=== PATIENT | male | born 1950 | race Caucasian/White ===

== ENCOUNTER 2020-12-07 14:17 | Inpatient (IN) ==
[2020-12-07 15:01] LABS: Basophils % 0.2 %; Hematocrit 37.6 % (37.5-50.1); Hemoglobin 12.3 g/dL (12.9-16.9); Lymphocytes # 1.1 K/mcL (0.6-4.6); Lymphocytes % 23.4 %; Mean Corpuscular HGB Conc 32.7 g/dL (31.6-35.5); Mean Corpuscular Hemoglobin 28.3 pg (28.0-33.3); Mean Corpuscular Volume 86.4 fL (83.0-100.0); Mean Platelet Volume 9.7 fL (9.4-12.4); Monocytes # 0.3 K/mcL (0.0-1.3); Monocytes % 5.5 %; Neutrophils # 3.4 K/mcL (1.6-8.9); Platelet Count 233 K/mcL (140-400); Red Blood Count 4.35 M/mcL (4.19-5.50); Red Cell Distribution Width 13.2 % (11.5-14.5); Segmented Neutrophils % 69.9 %; White Blood Count 4.9 K/mcL (4.3-11.1)
[2020-12-07 15:26] LABS: Troponin I 0.08 ng/mL (< 0.04)
[2020-12-07 15:32] LABS: BUN/Creatinine Ratio 19 (6-26); Blood Urea Nitrogen 23 mg/dL (8-23); Calcium 8.2 mg/dL (8.6-10.3); Carbon Dioxide 21 mEq/L (23-29); Chloride 97 mEq/L (98-107); Glucose 96 mg/dL (70-105); Osmolality,Calculated 274 (280-300); Sodium 130 mEq/L (136-145); eGFR For African Americans > 60 (> 60); eGFR For Non-African Americans > 60 (> 60)
[2020-12-07 15:43] LABS: Influenza A PCR Negative (Negative); Influenza B PCR Negative (Negative); Resp. Syncytial Virus PCR Negative (Negative)
[2020-12-07 15:56] LABS: SARS-CoV-2 by PCR (In House) Positive (Negative)
[2020-12-07] MEDS ORDERED: Aspirin 325 MG TABLET PO ONE (16:34)
[2020-12-07] MEDS ORDERED: Acetaminophen 325 MG TABLET PO PRN (17:16)
[2020-12-07 17:23] LABS: Alanine Aminotransferase 19 Units/L (7-52); Albumin 3.9 g/dL (3.5-5.7); Albumin/Globulin Ratio 1.1 (1.1-2.2); Alkaline Phosphatase 51 Units/L (34-104); Aspartate Amino Transferase 31 Units/L (13-39); Bilirubin,Direct 0.2 mg/dL (0.0-0.2); Bilirubin,Indirect 0.4 mg/dL (0.0-1.0); Bilirubin,Total 0.6 mg/dL (0.3-1.0); C-Reactive Protein 103 mg/L (Less than 10); Globulin 3.7 g/dL (2.4-3.5); Lactate Dehydrogenase 247 Units/L (140-271); Total Protein 7.6 g/dL (6.4-8.9)
[2020-12-07 17:41] LABS: Ferritin 971 ng/mL (20-250)
[2020-12-07] MEDS ORDERED: Ondansetron 4 MG/2 ML VIAL IVP PRN (17:43)
[2020-12-07] MEDS ORDERED: Naloxone 0.4 MG/ML INJ IVP PRN (17:43)
[2020-12-07] MEDS ORDERED: Dextrose Gel 15 GM/37.5 ML TUBE PO PRN ×2 (17:55)
[2020-12-07] MEDS ORDERED: D5% in Water 1,000 ML IVC PRN (17:55)
[2020-12-07] MEDS ORDERED: *HR* Dextrose 50 % in Water (Syg) 50 ML SYRINGE IVP PRN (17:55)
[2020-12-07] MEDS ORDERED: Isovue-370 500 ML BOTTLE IVP ONE (18:25)
[2020-12-07] MEDS ORDERED: Remdesivir 200 MG in 0.9 % Sodium Chloride 100 ML IVPB ONE (19:00)
[2020-12-07] MEDS ORDERED: Melatonin 3 MG TABLET PO ONE (20:55)
[2020-12-07] MEDS: Insulin LISPRO 300 UNITS/3 ML VIAL SUBQ SCH (20:56)
[2020-12-07] MEDS: Ipratropium 1 PUFF INHALER IH SCH ×2 (21:08→23:56)
[2020-12-08 03:27] LABS: Alanine Aminotransferase 16 Units/L (7-52); Albumin 3.7 g/dL (3.5-5.7); Albumin/Globulin Ratio 1.1 (1.1-2.2); Alkaline Phosphatase 53 Units/L (34-104); Aspartate Amino Transferase 25 Units/L (13-39); BUN/Creatinine Ratio 28 (6-26); Bilirubin,Total 0.5 mg/dL (0.3-1.0); Blood Urea Nitrogen 29 mg/dL (8-23); Calcium 8.1 mg/dL (8.6-10.3); Carbon Dioxide 19 mEq/L (23-29); Chloride 100 mEq/L (98-107); Globulin 3.4 g/dL (2.4-3.5); Glucose 196 mg/dL (70-105); Osmolality,Calculated 285 (280-300); Potassium 4.2 mEq/L (3.5-5.1); Sodium 132 mEq/L (136-145); Total Protein 7.1 g/dL (6.4-8.9); eGFR For African Americans > 60 (> 60); eGFR For Non-African Americans > 60 (> 60)
[2020-12-08 04:14] LABS: Basophils % 0.6 %; Hematocrit 36.5 % (37.5-50.1); Hemoglobin 11.7 g/dL (12.9-16.9); Immature Granulocytes % 0.8 % (0-4); Lymphocytes # 0.8 K/mcL (0.6-4.6); Lymphocytes % 23.1 %; Mean Corpuscular HGB Conc 32.1 g/dL (31.6-35.5); Mean Corpuscular Hemoglobin 28.1 pg (28.0-33.3); Mean Corpuscular Volume 87.7 fL (83.0-100.0); Mean Platelet Volume 10.1 fL (9.4-12.4); Monocytes # 0.2 K/mcL (0.0-1.3); Monocytes % 4.4 %; Neutrophils # 2.6 K/mcL (1.6-8.9); Platelet Count 224 K/mcL (140-400); Red Blood Count 4.16 M/mcL (4.19-5.50); Red Cell Distribution Width 13.2 % (11.5-14.5); Segmented Neutrophils % 71.1 %; White Blood Count 3.6 K/mcL (4.3-11.1)
[2020-12-08] MEDS: Ipratropium 1 PUFF INHALER IH SCH ×4 (04:23→15:38)
[2020-12-08] MEDS: *HR* Enoxaparin 40 MG/0.4 ML SYRINGE SQ SCH (06:16)
[2020-12-08] MEDS ORDERED: Dexamethasone Sodium Phos/PF 10 MG/ML VIAL IVP SCH (09:00)
[2020-12-08] MEDS: Insulin LISPRO 300 UNITS/3 ML VIAL SUBQ SCH ×4 (11:48→21:03)
[2020-12-08] MEDS: Furosemide 20 MG/2 ML VIAL IVP SCH ×2 (12:03→21:04)
[2020-12-08] MEDS ORDERED: Remdesivir 100 MG in 0.9 % Sodium Chloride 100 ML IVPB SCH (19:00)
[2020-12-08] MEDS ORDERED: Insulin DETEMIR 100 UNIT/ML X5UNITS SUBQ SCH (21:00)
[2020-12-08] MEDS: carvediloL 25 MG TABLET PO SCH (21:04)
[2020-12-09] MEDS: Ipratropium 1 PUFF INHALER IH SCH ×5 (00:37→11:39)
[2020-12-09] MEDS: *HR* Enoxaparin 40 MG/0.4 ML SYRINGE SQ SCH (05:31)
[2020-12-09 05:56] LABS: Basophils % 0.2 %; Hematocrit 39.4 % (37.5-50.1); Hemoglobin 12.6 g/dL (12.9-16.9); Immature Granulocytes % 0.8 % (0-4); Lymphocytes # 1.3 K/mcL (0.6-4.6); Lymphocytes % 14.9 %; Mean Corpuscular Hemoglobin 27.6 pg (28.0-33.3); Mean Corpuscular Volume 86.4 fL (83.0-100.0); Mean Platelet Volume 9.8 fL (9.4-12.4); Monocytes # 0.5 K/mcL (0.0-1.3); Monocytes % 5.7 %; Neutrophils # 6.7 K/mcL (1.6-8.9); Platelet Count 292 K/mcL (140-400); Red Blood Count 4.56 M/mcL (4.19-5.50); Red Cell Distribution Width 13.2 % (11.5-14.5); Segmented Neutrophils % 78.4 %
[2020-12-09 06:03] LABS: Albumin 3.7 g/dL (3.5-5.7); Bilirubin,Direct 0.1 mg/dL (0.0-0.2); Bilirubin,Indirect 0.3 mg/dL (0.0-1.0); Bilirubin,Total 0.4 mg/dL (0.3-1.0); Globulin 3.8 g/dL (2.4-3.5); Magnesium 1.7 mg/dL (1.6-2.6); Total Protein 7.5 g/dL (6.4-8.9)
[2020-12-09 06:12] LABS: White Blood Count 8.5 K/mcL (4.3-11.1)
[2020-12-09 06:14] LABS: Fibrinogen 564 mg/dL (169-393)
[2020-12-09 06:18] LABS: D-Dimer 1160 ng/mLFEU (0-500)
[2020-12-09] MEDS ORDERED: Saline Nasal Spray 44 ML BOTTLE NS SCH (07:45)
[2020-12-09 08:13] VITALS: BP 112/75; PULSE 90; TEMP 98.4
[2020-12-09] MEDS ORDERED: Chlorhexidine Rinse 15 ML MOUTHWASH MM SCH (09:00)
[2020-12-09] MEDS ORDERED: cilostazoL 100 MG TABLET PO SCH (09:00)
[2020-12-09] MEDS ORDERED: lisinopriL 10 MG TABLET PO SCH (09:00)
[2020-12-09] MEDS ORDERED: Aspirin Enteric Coated 81 MG Tablet PO SCH (09:00)
[2020-12-09] MEDS ORDERED: Cholecalciferol (D-3) 1,000 UNIT (25MCG) TABLET PO SCH (09:00)
[2020-12-09] MEDS ORDERED: Artificial Tears SOLN 15 ML BOTTLE BOTH EYES SCH (09:00)
[2020-12-09] MEDS: Insulin LISPRO 300 UNITS/3 ML VIAL SUBQ SCH (09:12)
[2020-12-09] MEDS: Furosemide 20 MG/2 ML VIAL IVP SCH (09:13)
[2020-12-09] MEDS: carvediloL 25 MG TABLET PO SCH (09:14)
[2020-12-09] MEDS: Saliva Stimulant 44.3ml BOTTLE PO SCH ×2 (09:24→09:25)
[2020-12-09 09:35] VITALS: O2SAT 97
[2020-12-12] MEDS ORDERED: Dexamethasone Sodium Phos/PF 10 MG/ML VIAL IVP SCH (09:00)
== END 2020-12-09 13:03 | disposition home or self-care (01) | DRG 871 ==
LOC: EMEROOARM 14:17 → 3BNU 14:17 → SUATTDRO 21:29
PROVIDERS: ADMIT Family Medicine; ATTEND Internal Medicine